=== PATIENT | female | born 1975 | race Two or more races ===

== ENCOUNTER 2017-07-23 14:01 | Observation (INO) | payer MEDICAID ==
[2017-07-23] MEDS ORDERED: PREN-96 PO (14:29)
[2017-07-23] MEDS ORDERED: CEPH250C PO (14:33)
== END 2017-07-23 15:15 | disposition home or self-care (01) | DRG 566 ==
LOC: LDRP 14:01
PROVIDERS: ADMIT Obstetrics & Gynecology; ATTEND Obstetrics & Gynecology
DX: O48.0 Post-term pregnancy (principal); Z3A.40 40 weeks gestation of pregnancy
CPT/HCPCS: 59025; 76805; 76818; 81002; G0378